=== PATIENT | female | born 1980 | race Hispanic/Latino ===

== ENCOUNTER 2019-04-04 17:53 | Emergency (ER) | payer SELFPAY ==
[2019-04-04 20:49] LABS: Bilirubin Negative (Negative); Blood, Urine Negative (Negative); Clarity Turbid (Clear); Glucose, Urine (Dipstick) 70 mg/dL (Negative); Leukocyte Negative Leu/uL (Negative); Nitrite Negative (Negative); Protein, Urine (Dipstick) Negative (Neg-Trace); Urobilinogen Normal mg/dL (Less than 2)
[2019-04-04 20:58] LABS: Pregnancy Test - Urine (BHCG) Negative (Negative); Pregu Control Background? CLEAR/WHITE (CLR/WHITE); Pregu Control Bar Appear? YES (CONTROL BAR); Specific Gravity 1.019 (1.002-1.036)
[2019-04-04 21:10] LABS: #Basophils 0.1 thou/uL (0.0-0.2); #Eosinphils 0.2 thou/uL (0.0-0.7); #Lymphocytes 3.5 thou/uL (1.20-3.40); #Monocytes 0.7 thou/uL (0.11-0.59); %Basophils 0.6 % (0.0-1.0); %Eosinophils 1.5 % (0.0-10.0); %Lymphocytes 33.8 % (21.0-51.0); Hemoglobin 11.6 g/dL (12.0-16.0); Mean Corpuscular HGB CONC 32.7 g/dL (32.0-36.0); Mean Corpuscular Hemoglobin 27.9 pg (27.0-31.0); Mean Corpuscular Volume 85.1 fL (78.0-98.0); Platelet Count 305 thou/uL (130-400); RBC Distribution Width 15.8 % (11.5-14.5); Red Blood Cell (RBC) Count 4.16 mill/uL (4.20-5.40); White Blood Cell (WBC) Count 10.5 thou/uL (4.8-10.8)
[2019-04-04 21:37] LABS: ALT (SGPT) 115 U/L (8-55); AST (SGOT) 93 U/L (5-34); Albumin 4.3 g/dL (3.5-5.0); Alkaline Phosphatase 164 U/L (40-110); Anion Gap 12 mmol/L (10-20); BUN (Urea Nitrogen) 8 mg/dL (7.0-18.7); Bilirubin, Total 0.3 mg/dL (0.2-1.2); Calc. Creatinine Clearance 0 mL/min (70-130); Calcium 9.3 mg/dL (7.8-10.44); Carbon Dioxide 24 mmol/L (22-29); Chloride 102 mmol/L (98-107); Estimated GFR-MDRD Greater than 90; Globulin 4.5 g/dL (2.4-3.5); Glucose 210 mg/dL (70-105); Potassium 3.8 mmol/L (3.5-5.1); Protein, Total 8.8 g/dL (6.0-8.3); Sodium 134 mmol/L (136-145)
== END 2019-04-04 23:15 | disposition home or self-care (01) ==
LOC: ERS 17:53
DX: R73.9 Hyperglycemia, unspecified (principal); D64.9 Anemia, unspecified; Z79.899 Other long term (current) drug therapy
CPT/HCPCS: 36416; 80053; 81003; 81025; 84443; 84484; 85025; 86850; 86900; 86901; 93005; 96360

== ENCOUNTER 2019-05-31 21:13 | Inpatient (IN) | payer OTHER, SELFPAY ==
--- NOTE | 2019-05-31 21:58 | RAD ---
PORTABLE CHEST 05/31/19 PROVIDED CLINICAL HISTORY: Cough, COVID positive. FINDINGS: No comparisons. Cardiac and mediastinal silhouette is within normal limits. There is patchy air space disease involvi ng the left mid and lower lung cardoza. No pleural fluid or pneumothorax apparent. IMPRESSION: Patchy left hemithoracic air space disease, compatible with pneumonia. POS: FRANKIE
[2019-05-31] MEDS ORDERED: cefTRIAXone\\ROCEPHIN 1 GM VIAL ONE (22:06)
[2019-05-31] MEDS ORDERED: Acetaminophen 500 MG TAB ONE (22:06)
[2019-05-31 22:47] LABS: #Basophils 0.1 thou/uL (0.0-0.2); #Lymphocytes 1.5 thou/uL (1.20-3.40); #Monocytes 0.6 thou/uL (0.11-0.59); #Neutrophils 7.3 thou/uL (1.40-6.50); %Basophils 1.1 % (0.0-1.0); %Eosinophils 0.2 % (0.0-10.0); %Lymphocytes 15.5 % (21.0-51.0); %Monocytes 6.1 % (0.0-10.0); %Neutrophils 77.1 % (42.0-75.0); Mean Corpuscular HGB CONC 32.3 g/dL (32.0-36.0); Mean Corpuscular Hemoglobin 27.6 pg (27.0-31.0); Mean Corpuscular Volume 85.3 fL (78.0-98.0); Mean Platelet Volume 10.6 fL (7.4-10.4); Platelet Count 209 thou/uL (130-400); RBC Distribution Width 14.3 % (11.5-14.5); Red Blood Cell (RBC) Count 4.36 mill/uL (4.20-5.40); White Blood Cell (WBC) Count 9.5 thou/uL (4.8-10.8)
[2019-05-31] MEDS ORDERED: Azithromycin 500 MG VIAL ONE (22:48)
[2019-05-31 23:06] LABS: ALT (SGPT) 176 U/L (8-55); AST (SGOT) 192 U/L (5-34); Albumin 3.9 g/dL (3.5-5.0); Alkaline Phosphatase 207 U/L (40-110); Anion Gap 17 mmol/L (10-20); BUN (Urea Nitrogen) 8 mg/dL (7.0-18.7); Bilirubin, Total 0.4 mg/dL (0.2-1.2); Calc. Creatinine Clearance 0 mL/min (70-130); Calcium 8.4 mg/dL (7.8-10.44); Carbon Dioxide 19 mmol/L (22-29); Chloride 102 mmol/L (98-107); Estimated GFR-MDRD Greater than 90; Globulin 4.9 g/dL (2.4-3.5); Glucose 125 mg/dL (70-105); Potassium 3.7 mmol/L (3.5-5.1); Protein, Total 8.8 g/dL (6.0-8.3); Sodium 134 mmol/L (136-145)
[2019-06-01 01:26] VITALS: BMI 32.5
[2019-06-01] MEDS ORDERED: Ondansetron ODT 4 MG TAB PO PRN (01:34)
[2019-06-01] MEDS ORDERED: Acetaminophen 650 MG Suppository PR PRN (01:34)
[2019-06-01] MEDS ORDERED: Ondansetron PF 4 MG/2 ML Vial IVP PRN (01:34)
[2019-06-01] MEDS ORDERED: Dextrose 50% Abboject 50 ML SYRINGE SLOW IVP PRN (01:37)
[2019-06-01] MEDS ORDERED: HumaLOG 300 UNITS/3 ML VIAL SC PRN ×2 (01:37)
[2019-06-01] MEDS ORDERED: Dextrose 5% in Water 1,000 ML IV PRN (01:37)
[2019-06-01] MEDS: Sodium Chloride 0.9% 1,000 ML IV SCH ×2 (02:26→23:04)
--- NOTE | 2019-06-01 02:29 | HP ---
TIME OF ASSESSMENT: 0030 hours. PRIMARY CARE PHYSICIAN: Hiram. CHIEF COMPLAINT: Persistent cough and shortness of breath. HISTORY OF PRESENT ILLNESS: Ms. Salmon is a 38-year-old woman, known to be COVID-19 positive, who presents complaining of a persisting cough that has worsened in the last couple of days. The patient states she has felt short of breath and exhausted after the coughing fits. She has had a reduced appetite and reports having coughing fits that have resulted in her vomiting 2 or 3 times in the last 2 days. She has also had loose stools on four occasions in the last 3 days, which she states were small in quantity due to the lack of food intake. She does report that she has been maintaining adequate hydration. The patient states her cough has been productive of yellow sputum and denies any hemoptysis. Reports having generalized discomfort involving her entire anterior chest. States this is due to the persistent cough. She has been feverish at home. Reports having occasional chills and generalized muscle aches. Also has had headaches, which seem to be exacerbated by her cough. No urinary symptoms. ED COURSE: In the emergency department, she had sats of 96% on room air. Since arriving to the floor, her sats have been 92% on room air. She had a chest x-ray done, which showed patchy left hemithoracic airspace disease compatible with pneumonia. She was started on IV antibiotics with Rocephin and azithromycin. Also given extra strength Tylenol 100 mg for her body aches and a mild temp of 99.6. She had laboratory studies done, which showed white count 9.5, hemoglobin 12, platelets 209, neutrophils 77.1%. LFTs elevated with an alkaline phosphatase of 207, AST 192, ALT 176, total protein 8.8, glucose 125. Sodium 134, potassium 3.7, BUN 8, creatinine 0.72, GFR greater than 90. PAST MEDICAL HISTORY: 1. Iron deficiency anemia. 2. History of heavy menses. 3. Type 2 diabetes mellitus. 4. COVID-19 positive. PAST SURGICAL HISTORY: None. SOCIAL HISTORY: The patient lives at home with her family. Denies any tobacco use, alcohol consumption, or illicit drug use. FAMILY HISTORY: Reports history of diabetes, hypertension, and hyperlipidemia in her mother. Her father had a history of asthma. PHYSICAL EXAMINATION: GENERAL: The patient appears well developed, in no acute distress. VITAL SIGNS: Temperature 98.1, pulse 92, respirations 18, O2 saturation 92% on room air, and blood pressure 153/79. HEENT: Normocephalic and atraumatic. Pupils are equal, round, and reactive to light. Sclerae icterus. Oropharynx is clear. NECK: Supple. LUNGS: Clear to auscultation bilaterally without any wheezes, rales, or rhonchi. Reduced breath sounds at the bilateral bases. Poor inspiratory effort due to deep inspiration exacerbating her cough. ABDOMEN: Obese, soft, nontender, nondistended. Normoactive bowel sounds present. No guarding or rigidity. EXTREMITIES: No lower leg swelling or edema. Peripheral pulses equal bilaterally. SKIN: Warm and dry. INVESTIGATIONS: As mentioned above in HPI. IMPRESSION AND PLAN: Ms. Salmon is a 38-year-old woman, who is being admitted for management of the following. 1. Pneumonia. The patient was started on IV antibiotics with azithromycin and Rocephin. We will continue IV antibiotics and monitor O2 saturations. 2. The patient noted to be COVID positive. Continue isolation precautions. 3. Type 2 diabetes mellitus. Monitor blood glucose. Initiate sliding scale. 4. Anemia. Resume iron, which she takes at home. Hemoglobin and hematocrit within normal range. 5. GI prophylaxis with famotidine. 6. Deep venous thrombosis prophylaxis with mechanical SCDs. 7. Code status full. Surrogate decision maker is Amy Rodriguez. 8. Case discussed with Dr. Washington Whitfield, who agrees with plan of care as described above. Job ID: [id number]
[2019-06-01] MEDS: Acetaminophen 325 MG TAB PO PRN ×3 (02:31→20:38)
[2019-06-01 05:31] LABS: #Lymphocytes 2.2 thou/uL (1.20-3.40); #Monocytes 0.5 thou/uL (0.11-0.59); #Neutrophils 5.1 thou/uL (1.40-6.50); %Basophils 0.3 % (0.0-1.0); %Eosinophils 0.2 % (0.0-10.0); %Monocytes 6.8 % (0.0-10.0); %Neutrophils 64.8 % (42.0-75.0); Hemoglobin 10.7 g/dL (12.0-16.0); Mean Corpuscular HGB CONC 32.8 g/dL (32.0-36.0); Mean Corpuscular Volume 85.3 fL (78.0-98.0); Mean Platelet Volume 8.5 fL (7.4-10.4); Platelet Count 229 thou/uL (130-400); RBC Distribution Width 14.1 % (11.5-14.5); Red Blood Cell (RBC) Count 3.82 mill/uL (4.20-5.40); White Blood Cell (WBC) Count 7.8 thou/uL (4.8-10.8)
[2019-06-01 05:52] LABS: ALT (SGPT) 139 U/L (8-55); AST (SGOT) 135 U/L (5-34); Albumin 3.3 g/dL (3.5-5.0); Alkaline Phosphatase 171 U/L (40-110); Anion Gap 11 mmol/L (10-20); BUN (Urea Nitrogen) 7 mg/dL (7.0-18.7); Bilirubin, Total 0.3 mg/dL (0.2-1.2); Calc. Creatinine Clearance 168 mL/min (70-130); Calcium 7.8 mg/dL (7.8-10.44); Carbon Dioxide 22 mmol/L (22-29); Chloride 104 mmol/L (98-107); Estimated GFR-MDRD Greater than 90; Globulin 3.9 g/dL (2.4-3.5); Glucose 105 mg/dL (70-105); Potassium 3.3 mmol/L (3.5-5.1); Protein, Total 7.2 g/dL (6.0-8.3); Sodium 134 mmol/L (136-145)
[2019-06-01] MEDS: Famotidine/PF 20 mg/2ml Vial SLOW IVP SCH ×2 (08:08→20:38)
[2019-06-01] MEDS: Hydroxychloroquine Sulfate 200 MG TAB PO SCH (20:38)
[2019-06-01] MEDS: cefTRIAXone\\ROCEPHIN 1 GM in Sodium Chloride 0.9% 100 ML IVPB SCH (22:20)
[2019-06-01] MEDS: Azithromycin 500 MG in Sodium Chloride 0.9% 250 ML 250 ML IVPB SCH (23:04)
[2019-06-02] MEDS: Acetaminophen 325 MG TAB PO PRN ×2 (01:38→19:46)
[2019-06-02] MEDS ORDERED: Melatonin 3 MG TAB PO SCH (02:15)
[2019-06-02 05:36] LABS: Band 8 % (5-11); Hemoglobin 10.5 g/dL (12.0-16.0); Lymphocytes 28 % (21-51); MDiff Complete? YES; Mean Corpuscular HGB CONC 32.1 g/dL (32.0-36.0); Mean Corpuscular Hemoglobin 27.5 pg (27.0-31.0); Mean Corpuscular Volume 85.8 fL (78.0-98.0); Mean Platelet Volume 7.9 fL (7.4-10.4); Monocytes 5 % (0-10); Neutrophil 59 % (42-75); Platelet Count 271 thou/uL (130-400); Platelet Morphology Comment Appears Adequate; RBC Distribution Width 14.3 % (11.5-14.5); Red Blood Cell (RBC) Count 3.81 mill/uL (4.20-5.40)
[2019-06-02 05:42] LABS: Anion Gap 11 mmol/L (10-20); BUN (Urea Nitrogen) 4 mg/dL (7.0-18.7); Calc. Creatinine Clearance 185 mL/min (70-130); Calcium 7.7 mg/dL (7.8-10.44); Carbon Dioxide 21 mmol/L (22-29); Chloride 108 mmol/L (98-107); Estimated GFR-MDRD Greater than 90; Glucose 86 mg/dL (70-105); Potassium 3.1 mmol/L (3.5-5.1); Sodium 137 mmol/L (136-145)
[2019-06-02] MEDS: Famotidine/PF 20 mg/2ml Vial SLOW IVP SCH ×2 (08:22→19:46)
[2019-06-02] MEDS: Hydroxychloroquine Sulfate 200 MG TAB PO SCH ×2 (08:23→19:46)
[2019-06-02] MEDS ORDERED: Hydroxychloroquine Sulfate 200 MG TAB PO SCH (09:00)
--- NOTE | 2019-06-02 10:29 | CON ---
DATE OF CONSULTATION: 06/01/2019 REASON FOR CONSULTATION: COVID-19 pneumonia. HISTORY OF PRESENT ILLNESS: A 38-year-old with history of type 2 diabetes, known COVID-19, the patient initially diagnosed in outpatient setting about a week before admission. The patient has noticed worsening cough for the past few days, worsening dyspnea, anorexia, some vomiting, mostly associated with coughing spells, some loose stools. The cough is productive, sputum is yellow. Some headaches. Anosmia noted. No bleeding. No genitourinary symptoms. No joint symptoms. Does have myalgias though. In the emergency room, her O2 saturations dropped to 89. She was placed on 2 L nasal cannula and it went up to 96, given Rocephin and azithromycin and admitted to the floor and she continues to have low-grade temperature elevations, tachypneic, feeling unwell. PAST MEDICAL HISTORY: Type 2 diabetes, iron deficiency. PAST SURGICAL HISTORY: Negative. I believe she is G3, P3. SOCIAL HISTORY: Never smoker. Lives in the area. FAMILY HISTORY: Type 2 diabetes. PHYSICAL EXAMINATION: VITAL SIGNS: On current exam; T-max 100.5, blood pressure 109/68, respiratory rate 28, O2 saturation 95 on 2 L, pulse now is down to 87. SKIN: With no areas of skin breakdown. Peripheral IV access. She is voiding spontaneously and no lymphadenopathy. HEENT: Ocular movements conjugate. Sclerae white. Pupils are equal. Oral cavity is normal. NECK: Supple. LUNGS: With faint basilar crackles, particularly in the right side. No wheezing. HEART: S1 and S2, regular rate. ABDOMEN: Soft. Not distended or tender. EXTREMITIES: Moves extremities equally. LABORATORY DATA: The white cell count was 9.5 and now 7.8, hemoglobin 10.7, platelets 229, initially 77% neutrophils, now 64. Total lymphocyte count 2.2. There was abnormal transaminases with AST higher than ALT until today when the ALT is higher than AST by a little, alkaline phosphatase 171, bilirubin normal. Albumin 3.3. Blood culture, no growth thus far. Respiratory culture with moderate gram-positive cocci in pairs. Chest x-ray with infiltrate to the bases mostly on the left side. ASSESSMENT: Type 2 diabetes and COVID-19 pneumonia, moderate to severe with tachypnea and hypoxemia. In view of her diabetes and moderate to severe course of illness, we will go ahead and start hydroxychloroquine and monitor progress. Continue to monitor C-reactive protein, LDH, ferritin. Hopefully, if the total lymphocyte increase today persists, it might mean improvement. Diabetics have a higher mortality at least probably 4 to 5 times mortality rate with COVID infection compared with non-diabetics without any other risk factor. Job ID: [id number] MTDD
[2019-06-02] MEDS ORDERED: Potassium Chloride 20 MEQ TAB PO ONE (14:45)
[2019-06-02] MEDS: Sodium Chloride 0.9% 1,000 ML IV SCH (15:21)
--- NOTE | 2019-06-02 18:06 | PRG ---
DATE OF SERVICE: 06/02/2019 SUBJECTIVE: Still coughing intermittently and short of breath when she walks to the bathroom. Some headaches. No abdominal pain. No diarrhea. OBJECTIVE: VITAL SIGNS: T-max 102.4 yesterday. Today, she has been afebrile. BP 116/56, pulse 73, respirations 20, O2 saturation 96%. GENERAL: Tachypneic. Some distress, but not much. HEENT: Ocular movements are conjugate. LUNGS: With fairly clear breath sounds. HEART: S1 and S2. Regular rate. ABDOMEN: Soft. Not distended. LABORATORY DATA: White cell count 6.0, hemoglobin 10.5, platelets 271 with normal differential. Lymphocytes are 28%. Creatinine 0.51. She has elevation in transaminases and alkaline phosphatase with albumin 3.3. ASSESSMENT AND DISCUSSION: Type 2 diabetes and COVID-19 pneumonia, [id number]. We will go ahead and submit D-dimer. Repeat CRP, LDH, and ferritin. She is currently on azithromycin, ceftriaxone, and hydroxychloroquine. Job ID: [id number]
--- NOTE | 2019-06-02 20:48 | PDOC.HOSPP ---
- Subjective Encounter Date: 06/02/19 Subjective: The patient's cough and SOB improving. - Objective Vital Signs & Weight: Vital Signs (12 hours) Temp Pulse Resp BP Pulse Ox 06/02/19 19:48 98.9 F 72 12 103/59 L 97 06/02/19 15:22 98.7 F 73 20 116/56 L 96 06/02/19 10:44 98.4 F 75 20 106/56 L 95 Weight Admit Weight 172 lb Weight 172 lb 4.8 oz I&O: 06/01/19 06/02/19 06/03/19 06:59 06:59 06:59 Intake Total 3111 Output Total 300 Balance 2811 Result Diagrams: 06/02/19 04:51 06/02/19 04:51 Additional Labs: Accuchecks 06/02/19 06/02/19 06/01/19 15:25 10:16 20:41 POC Glucose 94 116 H 92 06/01/19 06/01/19 16:41 12:35 POC Glucose 137 H 104 Hospitalist ROS - Medication Medications: Active Medications Generic Name Dose Route Start Last Admin Trade Name Freq PRN Reason Stop Dose Admin Acetaminophen 650 mg 06/01/19 01:34 06/02/19 19:46 Tylenol PO 650 mg Q4H PRN Administration Headache/Fever/Mild Pain (1-3) Famotidine 20 mg 06/01/19 09:00 06/02/19 19:46 Pepcid SLOW IVP 20 mg Q12HR ESTEPHANIE Administration Hydroxychloroquine Sulfate 200 mg 06/02/19 21:00 06/02/19 19:46 Plaquenil PO 06/06/19 09:01 200 mg BID ESTEPHANIE Administration Sodium Chloride 1,000 mls @ 50 mls/hr 06/01/19 01:45 06/02/19 15:21 Normal Saline 0.9% IV 1,000 mls .Q20H ESTEPHANIE Administration Azithromycin 500 mg/ Sodium 250 mls @ 250 mls/hr 06/01/19 22:00 06/01/19 23: 04 Chloride IVPB 250 mls Q24HR ESTEPHANIE Administration Ceftriaxone Sodium 1 gm/ 100 mls @ 200 mls/hr 06/01/19 22:00 06/01/19 22:20 Sodium Chloride IVPB 100 mls Q24HR ESTEPHANIE Administration - Exam General Appearance: NAD, awake alert ENT: normocephalic atraumatic Neck: supple, no JVD Respiratory: normal chest expansion, no tachypnea Extremities: no cyanosis, no clubbing Neurological: cranial nerve grossly intact, no focal deficits Psychiatric: normal affect, A&O x 3 Hosp A/P (1) COVID-19 virus infection Code(s): U07.1 - COVID-19 Status: Acute (2) Pneumonia Code(s): J18.9 - PNEUMONIA, UNSPECIFIED ORGANISM Status: Acute (3) DM2 (diabetes mellitus, type 2) Status: Acute - Plan Acute respiratory failure with hypoxia due to COVID 19. Continue Ceftriaxone, Azithromycin, and Hydroxychloroquine.
[2019-06-02] MEDS: cefTRIAXone\\ROCEPHIN 1 GM in Sodium Chloride 0.9% 100 ML IVPB SCH (21:13)
[2019-06-02] MEDS: Azithromycin 500 MG in Sodium Chloride 0.9% 250 ML 250 ML IVPB SCH (22:09)
[2019-06-03 05:47] LABS: Anion Gap 14 mmol/L (10-20); BUN (Urea Nitrogen) 5 mg/dL (7.0-18.7); Calc. Creatinine Clearance 174 mL/min (70-130); Calcium 8.3 mg/dL (7.8-10.44); Carbon Dioxide 18 mmol/L (22-29); Chloride 113 mmol/L (98-107); Estimated GFR-MDRD Greater than 90; Glucose 83 mg/dL (70-105); Magnesium 1.8 mg/dL (1.6-2.6); Potassium 3.6 mmol/L (3.5-5.1); Sodium 141 mmol/L (136-145)
[2019-06-03 05:52] LABS: Hemoglobin 10.5 g/dL (12.0-16.0); Mean Corpuscular HGB CONC 32.6 g/dL (32.0-36.0); Mean Corpuscular Volume 85.9 fL (78.0-98.0); RBC Distribution Width 14.3 % (11.5-14.5); Red Blood Cell (RBC) Count 3.76 mill/uL (4.20-5.40)
[2019-06-03 06:19] LABS: Band 13 % (5-11); Lymphocytes 31 % (21-51); MDiff Complete? YES; Mean Platelet Volume 8.2 fL (7.4-10.4); Monocytes 9 % (0-10); Neutrophil 47 % (42-75); Platelet Count 326 thou/uL (130-400); White Blood Cell (WBC) Count 6.4 thou/uL (4.8-10.8)
[2019-06-03] MEDS ORDERED: Potassium Chloride 20 MEQ TAB PO ONE (09:00)
[2019-06-03] MEDS ORDERED: Magnesium 2 GM/50 ML 2 GM in Premix Bag 1 BAG IVPB ONE (09:00)
[2019-06-03] MEDS: Hydroxychloroquine Sulfate 200 MG TAB PO SCH ×2 (09:54→20:56)
[2019-06-03] MEDS: Acetaminophen 325 MG TAB PO PRN ×2 (09:54→18:40)
[2019-06-03] MEDS: Famotidine/PF 20 mg/2ml Vial SLOW IVP SCH ×2 (09:55→20:56)
--- NOTE | 2019-06-03 10:28 | PDOC.HOSPP ---
- Subjective Encounter Date: 06/03/19 Subjective: Remains short of breath with minimal activities. Still O2 dependent. - Objective Vital Signs & Weight: Vital Signs (12 hours) Temp Pulse Resp BP BP Pulse Ox 06/03/19 09:51 98.4 F 71 33 H 106/59 L 98 06/03/19 03:15 98.2 F 61 20 96/55 L 95 Weight Admit Weight 172 lb Weight 172 lb 4.8 oz I&O: 06/02/19 06/03/19 06/04/19 06:59 06:59 06:59 Intake Total 3111 1309 Output Total 300 Balance 2811 1309 Result Diagrams: 06/03/19 04:51 06/03/19 04:51 Additional Labs: Accuchecks 06/02/19 06/02/19 21:25 15:25 POC Glucose 85 94 Hospitalist ROS - Medication Medications: Active Medications Generic Name Dose Route Start Last Admin Trade Name Freq PRN Reason Stop Dose Admin Acetaminophen 650 mg 06/01/19 01:34 06/03/19 09:54 Tylenol PO 650 mg Q4H PRN Administration Headache/Fever/Mild Pain (1-3) Famotidine 20 mg 06/01/19 09:00 06/03/19 09:55 Pepcid SLOW IVP 20 mg Q12HR ESTEPHANIE Administration Hydroxychloroquine Sulfate 200 mg 06/02/19 21:00 06/03/19 09:54 Plaquenil PO 06/06/19 09:01 200 mg BID ESTEPHANIE Administration Sodium Chloride 1,000 mls @ 50 mls/hr 06/01/19 01:45 06/02/19 15:21 Normal Saline 0.9% IV 1,000 mls .Q20H ESTEPHANIE Administration Azithromycin 500 mg/ Sodium 250 mls @ 250 mls/hr 06/01/19 22:00 06/02/19 22: 09 Chloride IVPB 250 mls Q24HR ESTEPHANIE Administration Ceftriaxone Sodium 1 gm/ 100 mls @ 200 mls/hr 06/01/19 22:00 06/02/19 21:13 Sodium Chloride IVPB 100 mls Q24HR ESTEPHANIE Administration - Exam General Appearance: awake alert ENT: normocephalic atraumatic Neck: supple, no JVD Heart: RRR Respiratory: normal chest expansion, no tachypnea, rhonchi Gastrointestinal: soft, non-tender, non-distended, normal bowel sounds Neurological: cranial nerve grossly intact, no focal deficits Psychiatric: A&O x 3 Hosp A/P (1) COVID-19 virus infection Code(s): U07.1 - COVID-19 Status: Acute (2) Pneumonia Code(s): J18.9 - PNEUMONIA, UNSPECIFIED ORGANISM Status: Acute (3) DM2 (diabetes mellitus, type 2) Status: Acute - Plan Acute respiratory failure with hypoxia due to COVID 19. Continue Ceftriaxone, Azithromycin, and Hydroxychloroquine. The patient still symptomatic. Continue to monitor her over the weekend.
[2019-06-03] MEDS: Sodium Chloride 0.9% 1,000 ML IV SCH (14:26)
[2019-06-03] MEDS: cefTRIAXone\\ROCEPHIN 1 GM in Sodium Chloride 0.9% 100 ML IVPB SCH (20:57)
[2019-06-03] MEDS: Azithromycin 500 MG in Sodium Chloride 0.9% 250 ML 250 ML IVPB SCH (21:43)
[2019-06-04 05:31] LABS: Anion Gap 15 mmol/L (10-20); BUN (Urea Nitrogen) 4 mg/dL (7.0-18.7); Calc. Creatinine Clearance 174 mL/min (70-130); Calcium 8.4 mg/dL (7.8-10.44); Carbon Dioxide 19 mmol/L (22-29); Chloride 110 mmol/L (98-107); Estimated GFR-MDRD Greater than 90; Glucose 101 mg/dL (70-105); Potassium 3.5 mmol/L (3.5-5.1); Sodium 140 mmol/L (136-145)
[2019-06-04 05:34] LABS: Band 4 % (5-11); Eosinophils 3 % (0-10); Hemoglobin 10.8 g/dL (12.0-16.0); Lymphocytes 25 % (21-51); MDiff Complete? YES; Mean Corpuscular HGB CONC 32.9 g/dL (32.0-36.0); Mean Corpuscular Hemoglobin 28.1 pg (27.0-31.0); Mean Corpuscular Volume 85.5 fL (78.0-98.0); Mean Platelet Volume 8.1 fL (7.4-10.4); Monocytes 4 % (0-10); Neutrophil 63 % (42-75); Platelet Count 367 thou/uL (130-400); RBC Distribution Width 14.2 % (11.5-14.5); Reactive Lymphocytes 1 % (0-10); Red Blood Cell (RBC) Count 3.83 mill/uL (4.20-5.40); White Blood Cell (WBC) Count 8.2 thou/uL (4.8-10.8)
[2019-06-04] MEDS: Famotidine/PF 20 mg/2ml Vial SLOW IVP SCH (08:21)
[2019-06-04] MEDS: Sodium Chloride 0.9% 1,000 ML IV SCH (08:21)
[2019-06-04] MEDS: Hydroxychloroquine Sulfate 200 MG TAB PO SCH ×2 (08:21→21:23)
[2019-06-04] MEDS: Acetaminophen 325 MG TAB PO PRN ×2 (11:47→21:50)
[2019-06-04] MEDS ORDERED: Potassium Chloride 20 MEQ TAB PO PRN (12:59)
[2019-06-04] MEDS ORDERED: Potassium Chloride 20 MEQ TAB PO ONE (13:00)
[2019-06-04] MEDS ORDERED: Magnesium 2 GM/50 ML 2 GM in Premix Bag 1 BAG IVPB PRN (13:01)
--- NOTE | 2019-06-04 13:59 | PDOC.HOSPP ---
- Subjective Encounter Date: 06/04/19 Encounter Time: 09:00 Subjective: no overnight evnets. this morning, feeling well and has no complaints. Has been afebrile for 2 days. pending discharge tomorrow if remains afebrile. - Objective Vital Signs & Weight: Vital Signs (12 hours) Temp Pulse Resp BP BP BP Pulse Ox 06/04/19 11:43 98.2 F 80 21 H 107/63 93 L 06/04/19 08:19 99.2 F 72 20 107/59 L 95 06/04/19 08:15 95 06/04/19 02:51 98.3 F 69 24 H 104/59 L 95 Weight Admit Weight 172 lb Weight 172 lb 4.8 oz I&O: 06/03/19 06/04/19 06/05/19 06:59 06:59 06:59 Intake Total 1309 150 Balance 1309 150 Result Diagrams: 06/04/19 04:47 06/04/19 04:47 Additional Labs: Accuchecks 06/04/19 06/03/19 06/03/19 11:46 21:11 18:43 POC Glucose 105 118 H 92 06/03/19 13:06 POC Glucose 91 Hospitalist ROS - Review of Systems Constitutional: denies: fever, chills, sweats, weakness, malaise, other Respiratory: denies: cough, dry, shortness of breath, hemoptysis, SOB with excertion, pleuritic pain, sputum, wheezing, other Cardiovascular: denies: chest pain, palpitations, orthopnea, paroxysmal noc. dyspnea, edema, light headedness, other Gastrointestinal: denies: nausea, vomiting, abdominal pain, diarrhea, constipation, melena, hematochezia, other Genitourinary: denies: dysuria, frequency, incontinence, hematuria, retention, other - Medication Medications: Active Medications Generic Name Dose Route Start Last Admin Trade Name Freq PRN Reason Stop Dose Admin Acetaminophen 650 mg 06/01/19 01:34 06/04/19 11:47 Tylenol PO 650 mg Q4H PRN Administration Headache/Fever/Mild Pain (1-3) Hydroxychloroquine Sulfate 200 mg 06/02/19 21:00 06/04/19 08:21 Plaquenil PO 06/06/19 09:01 200 mg BID ESTEPHANIE Administration Sodium Chloride 1,000 mls @ 50 mls/hr 06/01/19 01:45 06/04/19 08:21 Normal Saline 0.9% IV 1,000 mls .Q20H ESTEPHANIE Administration Azithromycin 500 mg/ Sodium 250 mls @ 250 mls/hr 06/01/19 22:00 06/03/19 21: 43 Chloride IVPB 06/05/19 23:00 250 mls Q24HR ESTEPHANIE Administration Ceftriaxone Sodium 1 gm/ 100 mls @ 200 mls/hr 06/01/19 22:00 06/03/19 20:57 Sodium Chloride IVPB 100 mls Q24HR ESTEPHANIE Administration - Exam General Appearance: NAD, awake alert Neck: no JVD Heart: RRR, no murmur, no gallops, no rubs Respiratory: CTAB, no wheezes, no rales, no ronchi Gastrointestinal: soft, non-tender, non-distended, normal bowel sounds Extremities: no edema Psychiatric: normal affect, normal behavior, A&O x 3 Hosp A/P - Plan #COVID pneumonia afebrile for 2 days feeling well; symptoms mostly resolved except for mild dyspnea DC tomorrow if remains afebrile will educate regarding home isolation continue ceftriaxone until 06/04; complete hydroxy and zithro treament at home
[2019-06-04] MEDS: Famotidine 20 MG TAB PO SCH (21:22)
[2019-06-04] MEDS: Azithromycin 500 MG in Sodium Chloride 0.9% 250 ML 250 ML IVPB SCH (21:25)
[2019-06-05] MEDS: Acetaminophen 325 MG TAB PO PRN (03:55)
[2019-06-05 05:13] LABS: Magnesium 1.7 mg/dL (1.6-2.6); Potassium 3.4 mmol/L (3.5-5.1)
[2019-06-05] MEDS: Famotidine 20 MG TAB PO SCH (10:09)
[2019-06-05] MEDS: Hydroxychloroquine Sulfate 200 MG TAB PO SCH (10:10)
[2019-06-05] MEDS ORDERED: Potassium Chloride 20 MEQ TAB PO SCH (13:45)
--- NOTE | 2019-06-05 15:31 | PRG ---
DATE OF SERVICE: 06/05/2019 SUBJECTIVE: Feeling better. Less cough. Able to smell. Sense of smell has returned. No more dyspnea. No sputum production. No diarrhea. Temperature has normalized. OBJECTIVE: VITAL SIGNS: Blood pressure 122/74, O2 saturations are 96 on room air. LUNGS: Pretty much clear breath sounds. A few crackles at the bases. HEART: S1 and S2, regular rate. ABDOMEN: Soft, not distended. LABORATORY DATA: Creatinine 0.54. Ferritin 266. CRP is at 4.23. ASSESSMENT AND DISCUSSION: Type 2 diabetes. COVID-19 infection. Clear-cut improvement in overall status. She is not requiring O2 supplementation anymore, and I think she could be considered for discharge planning. Apparently, she lives with 3 kids in the home, and she has a separate room. Children seem to be healthy at this time. Job ID: [id number]
[2019-06-05 16:10] VITALS: BP 131/79; TEMP 98.5
--- NOTE | 2019-06-06 05:51 | DIS ---
DATE OF ADMISSION: 05/31/2019 DATE OF DISCHARGE: 06/05/2019 HOSPITAL COURSE: Ms. Salmon is a 38-year-old female with a medical history of type 2 diabetes, who was diagnosed with COVID-19 pneumonia as an outpatient. She presented with worsening cough and shortness of breath. She was admitted for continued observation. COVID pneumonia: The patient was treated with hydroxychloroquine and azithromycin as well as ceftriaxone. The patient progressively improved. Prior to discharge, she remained afebrile for more than three days. Breathing and saturating well on room air. PHYSICAL EXAMINATION: VITAL SIGNS: Unremarkable. GENERAL: No apparent distress. Awake and alert. NECK: No lymphadenopathy. No JVD. HEART: Regular rate and rhythm. No murmurs, gallops, or rubs. RESPIRATORY: Clear to auscultation bilaterally. No tachypnea. No wheezes, rhonchi, or rales. GI: Soft, nontender, and nondistended. Normal bowel sounds. NEUROLOGIC: Cranial nerves II through XII are intact. No focal deficits. PSYCHIATRIC: Alert and oriented x3. ASSESSMENT AND PLAN: Prior to discharge, the patient was provided with surgical mask and was educated regarding isolation. It was confirmed that the patient had the means to be isolated prior to discharge. Job ID: [id number]
== END 2019-06-05 18:15 | disposition home or self-care (01) | DRG 177 ==
LOC: ERS 21:13 → T4-A 22:55 → 2SW 06-01 17:51
PROVIDERS: ADMIT Internal Medicine; ATTEND Internal Medicine
PROC: 8E0ZXY6 Isolation (ICD-10-PCS; principal; 2019-05-31)
DX: U07.1 COVID-19 (principal); J12.89 Other viral pneumonia; J96.01 Acute respiratory failure with hypoxia; D50.9 Iron deficiency anemia, unspecified; E11.9 Type 2 diabetes mellitus without complications; Z88.0 Allergy status to penicillin
CPT/HCPCS: 36415; 36416; 71045; 80048; 80053; 82728; 83605; 83615; 83735; 84132; 85007; 85025; 85027; 85379; 86140; 87040; 87070; 87205; 96365; 96375; J0456; J0696; J3475; J3490; J7050; S0028

== ENCOUNTER 2022-12-01 12:23 | Outpatient (CLI) | payer MEDICAID | END 2022-12-01 12:24 | disposition home or self-care (01) | LOC: BICMAMMO 12:23 → EDSTATUS 12:30 | PROVIDERS: ATTEND Nurse Practitioner Family | DX: Z12.31 Encounter for screening mammogram for malignant neoplasm of breast (principal) | CPT/HCPCS: 77067 ==